=== PATIENT | female | born 1930 | race Caucasian/White ===

== ENCOUNTER → 2016-12-07 | Outpatient (CLI) | payer MEDICARE, BC ==
--- NOTE | 2016-12-07 10:49 | BD ---
EXAMINATION TYPE: MG DEXA axial skeleton. DATE OF EXAM: 12/07/2016 9:54 AM COMPARISON: 12.01.2010 CLINICAL HISTORY: N95.9 UNSPECIFIED KIRSTIE Height: 61 Weight: 161 FRAX RISK QUESTIONS: Alcohol (3 or more units per day): NO Family History (Parent hip fracture): NO Glucocorticoids (More than 3mos): NO (Ex: prednisone, prednisolone, methylprednisolone, dexamethasone, and hydrocortisone). History of Fracture in Adulthood: NO Secondary Osteoporosis: NO 1. Type 1 Diabetes: YES 2. Hyperthyroidism: NO 3. Menopause before 45: NO 4. Malnutrition: NO 5. Chronic liver disease: NO Rheumatoid Arthritis: NO Current Tobacco Use: NO RISK FACTORS HISTORY OF: Family History of Osteoporosis: NONE Smoke tobacco: NO Drink Alcohol: NO Active: YES Diet low in dairy products/other sources of calcium: NO Postmenopausal woman: 49 Lost more than 2 inches in height since high school: YES Adrenal Insufficiency: NO MEDICATIONS: Additional Medications: VIT D, BP MEDS, DIABETIC MEDS (ORAL), Additional History: DIABETES, HYPERTENSION EXAM MEASUREMENTS: Bone mineral densitometry was performed using the [employer] System. Bone mineral density as measured about the Lumbar spine is: ----- L1-L4(G/cm2): 1.210 T Score Values are as follows: ----- L1: -0.1 ----- L2: -0.3 ----- L3: 0.0 ----- L4: 1.1 ----- L1-L4: 0.3 Bone mineral density has: Increased 5.0% since study of: 12.01.2010 Bone mineral density about the R hip (g/cm2): 1.044 Bone mineral density about the L hip (g/cm2): 1.013 T Score values are as follows: -----R Neck: 0.2 -----L Neck: -0.4 -----R Intertrochanter: -0.1 -----L Intertrochanter: -0.2 Bone mineral density has: Increased 0.9% since study of: 12.01.2010 FRAX %'S: 8.1% CHANCE OF A MAJOR OSTEOPOROTIC FX AND 1.7% FOR A HIP FX....PROBABILITY OF FX IN 10 Y RS TIME IMPRESSION: Normal (Values between +1 and -1 indicate normal bone mass) range remains present. NOTE: T-SCORE=SD OF THE YOUNG ADULT MEAN.
--- NOTE | 2016-12-07 11:24 | MM ---
Reason for exam: screening (asymptomatic). Last mammogram was performed 2 years and 11 months ago. History: Patient is postmenopausal. Benign left US cyst aspiration of the left breast, December 01, 2010. Benign excisional biopsy of the left breast, 2000. Physical Findings: A clinical breast exam by your physician is recommended on an annual basis and results should be correlated with mammographic findings. MG Screening Mammo w CAD Bilateral CC and MLO view(s) were taken. XCCL view(s) were taken of the right breast. Prior study comparison: January 17, 2014, bilateral MG screening mammo w CAD. The breast tissue is heterogeneously dense. This may lower the sensitivity of mammography. Finding #1: There is a 10 mm circumscribed round mass in the upper quadrant, posterior position of the right breast. Finding #2: There are typically benign vascular, dystrophic, round calcifications in both breasts. Previous mammotome biopsy in the left breast. There is a chronic nodularity bilaterally. Nodularity in the left breast that has increased in size. New finding since January 17, 2014. ASSESSMENT: Incomplete: need additional imaging evaluation, BI-RAD 0 RECOMMENDATION: Ultrasound of both breasts. [facility] will attempt to contact patient to return for ultrasound.
== END | disposition home or self-care (01) ==
LOC: RADMAMWWP 09:16
PROVIDERS: ATTEND Family Medicine
DX: Z12.31 Encounter for screening mammogram for malignant neoplasm of breast (principal); N95.9 Unspecified menopausal and perimenopausal disorder; R92.2 Inconclusive mammogram
CPT/HCPCS: 77080; G0202

== ENCOUNTER → 2016-12-11 | Outpatient (CLI) | payer MEDICARE, BC ==
--- NOTE | 2016-12-11 11:37 | USB ---
Reason for exam: additional evaluation requested from abnormal screening. History: Patient is postmenopausal. Benign left US cyst aspiration of the left breast, December 01, 2010. Benign excisional biopsy of the left breast, 2000. Physical Findings: Nurse did not find any significant physical abnormalities on exam. US Breast Workup Limited DESTINI Right breast ultrasound demonstrates a 10 x 6 x 8mm oval, cystic lesion at 1 o'clock and a 2mm shadowing calcification at 1 o'clock. Left breast ultrasound demonstrates a 5mm cystic lesion at 2 o'clock, a 7 x 7 x 7mm lobular, cystic lesion at 3 o'clock, a 6 x 6 x 5mm lobular, cystic lesion at 3 o'clock and a 17 x 6 x 12mm lipoma at 3 o'clock. These results were verbally communicated with the patient and result sheet given to the patient on 12/11/16. ASSESSMENT: Probably benign, BI-RAD 3 RECOMMENDATION: Follow-up diagnostic mammogram of both breasts in 6 months.
== END | disposition home or self-care (01) ==
LOC: RADUSWWP 10:20
PROVIDERS: ATTEND Family Medicine
DX: R92.8 Other abnormal and inconclusive findings on diagnostic imaging of breast (principal)

== ENCOUNTER 2017-03-16 13:56 | Emergency (ER) | payer MEDICARE, BC ==
[2017-03-16 14:18] VITALS: TEMP 97.9
[2017-03-16 14:21] LABS: Glucose,Whole Blood 534 mg/dL (75-99)
[2017-03-16] MEDS ORDERED: SODIUM CHLORIDE 0.9% 1,000 ML IV STA ×2 (14:38)
[2017-03-16] MEDS ORDERED: SODIUM CHLORIDE 0.9% 500 ML IV STA (14:38)
[2017-03-16] MEDS ORDERED: INSULIN REGULAR 100 UNIT/ML VIAL IV ONE (14:39)
--- NOTE | 2017-03-16 14:54 | ED ---
General Adult HPI - General Chief complaint: Recheck/Abnormal Lab/Rx Stated complaint: Hyperglycemic Time Seen by Provider: 03/16/17 14:38 Source: patient, RN notes reviewed, old records reviewed Mode of arrival: ambulatory Limitations: no limitations - History of Present Illness Initial comments: This is an 87-year-old female to the ER for evaluation. This patient presents for evaluation regarding elevated blood sugar, severely elevated blood sugar relatively symptomatic since yesterday. Patient's [id number]. Has no complaints or symptoms - Related Data Home Medications Medication Instructions Recorded Confirmed Aspirin 81 mg PO DAILY 03/16/17 03/16/17 Atenolol 25 mg PO DAILY 03/16/17 03/16/17 Ergocalciferol (Vitamin D2) 50,000 unit PO DAILY 03/16/17 03/16/17 [Vitamin D2] Isosorbide Mononitrate ER [Imdur] 60 mg PO DAILY 03/16/17 03/16/17 Losartan/Hydrochlorothiazide 1 each PO DAILY 03/16/17 03/16/17 [Hyzaar 100-25 Tablet] Simvastatin [Zocor] 5 mg PO HS 03/16/17 03/16/17 glipiZIDE [Glucotrol] 5 mg PO AC-BID 03/16/17 03/16/17 metFORMIN HCL 500 mg PO BID 03/16/17 03/16/17 sitaGLIPtin [Januvia] 50 mg PO DAILY 03/16/17 03/16/17 Allergies Allergy/AdvReac Type Severity Reaction Status Date / Time No Known Allergies Allergy Verified 03/16/17 14:17 Review of Systems ROS Statement: Those systems with pertinent positive or pertinent negative responses have been documented in the HPI. ROS Other: All systems not noted in ROS Statement are negative. Past Medical History Past Medical History: Diabetes Mellitus History of Any Multi-Drug Resistant Organisms: None Reported Past Surgical History: Cholecystectomy Past Psychological History: No Psychological Hx Reported Smoking Status: Never smoker Past Alcohol Use History: None Reported Past Drug Use History: None Reported General Exam Limitations: no limitations General appearance: alert, in no apparent distress Head exam: Present: atraumatic, normocephalic, normal inspection Eye exam: Present: normal appearance, PERRL, EOMI. Absent: scleral icterus, conjunctival injection, periorbital swelling ENT exam: Present: normal exam, mucous membranes moist Neck exam: Present: normal inspection. Absent: tenderness, meningismus, lymphadenopathy Respiratory exam: Present: normal lung sounds bilaterally. Absent: respiratory distress, wheezes, rales, rhonchi, stridor Cardiovascular Exam: Present: regular rate, normal rhythm, normal heart sounds. Absent: systolic murmur, diastolic murmur, rubs, gallop, clicks GI/Abdominal exam: Present: soft, normal bowel sounds. Absent: distended, tenderness, guarding, rebound, rigid Extremities exam: Present: normal inspection, full ROM, normal capillary refill. Absent: tenderness, pedal edema, joint swelling, calf tenderness Back exam: Present: normal inspection Neurological exam: Present: alert, oriented X3, CN II-XII intact Psychiatric exam: Present: normal affect, normal mood Skin exam: Present: warm, dry, intact, normal color. Absent: rash Course Vital Signs 03/16/17 14:15 Temperature 97.9 F Pulse Rate 62 Respiratory 16 Rate Blood Pressure 118/79 O2 Sat by Pulse 97 Oximetry - Reevaluation(s) Reevaluation #1: 03/16/17 16:44 Patient has good blood sugar control at this time. The bones improved, encouraged to drink a lot of liquids and will be discharged home EKG Findings - EKG Comments: EKG Findings:: EKG shows sinus bradycardia rate of 50, pO2 30, QRS 94, QTC 435 Medical Decision Making - Medical Decision Making 79 female in the ER for evaluation of hyperglycemia with diabetes. Patient no longer has success with oral medication, asymptomatic otherwise, encouraged to follow up with family care tomorrow regarding management of diabetes - Lab Data Result diagrams: 03/16/17 15:31 03/16/17 15:31 Lab Results 03/16/17 03/16/17 03/16/17 Range/Units 14:18 15:31 15:31 WBC (3.8-10.6) k/uL RBC (3.80-5.40) m/uL Hgb (11.4-16.0) gm/dL Hct (34.0-46.0) % MCV (80.0-100.0) fL MCH (25.0-35.0) pg MCHC (31.0-37.0) g/dL RDW (11.5-15.5) % Plt Count (150-450) k/uL Neutrophils % % Lymphocytes % % Monocytes % % Eosinophils % % Basophils % % Neutrophils # (1.3-7.7) k/uL Lymphocytes # (1.0-4.8) k/uL Monocytes # (0-1.0) k/uL Eosinophils # (0-0.7) k/uL Basophils # (0-0.2) k/uL PT (9.0-12.0) sec INR (<1.2) APTT (22.0-30.0) sec VBG pH 7.36 (7.31-7.41) VBG pCO2 49 (37-51) mmHg VBG HCO3 27 (24-28) mmol/L Sodium 133 L (137-145) mmol/L Potassium 4.2 (3.5-5.1) mmol/L Chloride 95 L (98-107) mmol/L Carbon Dioxide 24 (22-30) mmol/L Anion Gap 14 mmol/L BUN 27 H (7-17) mg/dL Creatinine 1.20 H (0.52-1.04) mg/dL Est GFR (MDRD) Af Amer 51 (>60 ml/min/1.73 sqM) Est GFR (MDRD) Non-Af 42 (>60 ml/min/1.73 sqM) Glucose 532 H* (74-99) mg/dL POC Glucose (mg/dL) 534 H (75-99) mg/dL POC Glu Emergency Medicine Physician Assistant Osiris Chandler Calcium 9.9 (8.4-10.2) mg/dL Phosphorus 3.8 (2.5-4.5) mg/dL Magnesium 1.8 (1.6-2.3) mg/dL Total Bilirubin 0.8 (0.2-1.3) mg/dL AST 45 H (14-36) U/L ALT 75 H (9-52) U/L Alkaline Phosphatase 207 H (38-126) U/L Total Creatine Kinase (30-135) U/L CK-MB (CK-2) (0.0-2.4) ng/mL CK-MB (CK-2) Rel Index Troponin I (0.000-0.034) ng/mL Total Protein 7.4 (6.3-8.2) g/dL Albumin 4.4 (3.5-5.0) g/dL Urine Color Urine Appearance (Clear) Urine pH (5.0-8.0) Ur Specific [place] (1.001-1.035) Urine Protein (Negative) Urine Glucose (UA) (Negative) Urine Ketones (Negative) Urine Blood (Negative) Urine Nitrite (Negative) Urine Bilirubin (Negative) Urine Urobilinogen (<2.0) mg/dL Ur Leukocyte Esterase (Negative) Acetone, Qual Negative (Negative) 03/16/17 03/16/17 03/16/17 Range/Units 15:31 15:31 15:31 WBC 6.0 (3.8-10.6) k/uL RBC 4.64 (3.80-5.40) m/uL Hgb 14.2 (11.4-16.0) gm/dL Hct 42.1 (34.0-46.0) % MCV 90.9 (80.0-100.0) fL MCH 30.6 (25.0-35.0) pg MCHC 33.7 (31.0-37.0) g/dL RDW 13.6 (11.5-15.5) % Plt Count 206 (150-450) k/uL Neutrophils % 77 % Lymphocytes % 15 % Monocytes % 5 % Eosinophils % 1 % Basophils % 0 % Neutrophils # 4.6 (1.3-7.7) k/uL Lymphocytes # 0.9 L (1.0-4.8) k/uL Monocytes # 0.3 (0-1.0) k/uL Eosinophils # 0.0 (0-0.7) k/uL Basophils # 0.0 (0-0.2) k/uL PT 10.0 (9.0-12.0) sec INR 1.0 (<1.2) APTT 21.8 L (22.0-30.0) sec VBG pH (7.31-7.41) VBG pCO2 (37-51) mmHg VBG HCO3 (24-28) mmol/L Sodium (137-145) mmol/L Potassium (3.5-5.1) mmol/L Chloride (98-107) mmol/L Carbon Dioxide (22-30) mmol/L Anion Gap mmol/L BUN (7-17) mg/dL Creatinine (0.52-1.04) mg/dL Est GFR (MDRD) Af Amer (>60 ml/min/1.73 sqM) Est GFR (MDRD) Non-Af (>60 ml/min/1.73 sqM) Glucose (74-99) mg/dL POC Glucose (mg/dL) (75-99) mg/dL POC Glu Emergency Medicine Physician Assistant ID Calcium (8.4-10.2) mg/dL Phosphorus (2.5-4.5) mg/dL Magnesium (1.6-2.3) mg/dL Total Bilirubin (0.2-1.3) mg/dL AST (14-36) U/L ALT (9-52) U/L Alkaline Phosphatase (38-126) U/L Total Creatine Kinase 38 (30-135) U/L CK-MB (CK-2) 0.7 (0.0-2.4) ng/mL CK-MB (CK-2) Rel Index 1.8 Troponin I <0.012 (0.000-0.034) ng/mL Total Protein (6.3-8.2) g/dL Albumin (3.5-5.0) g/dL Urine Color Urine Appearance (Clear) Urine pH (5.0-8.0) Ur Specific [place] (1.001-1.035) Urine Protein (Negative) Urine Glucose (UA) (Negative) Urine Ketones (Negative) Urine Blood (Negative) Urine Nitrite (Negative) Urine Bilirubin (Negative) Urine Urobilinogen (<2.0) mg/dL Ur Leukocyte Esterase (Negative) Acetone, Qual (Negative) 03/16/17 Range/Units 15:31 WBC (3.8-10.6) k/uL RBC (3.80-5.40) m/uL Hgb (11.4-16.0) gm/dL Hct (34.0-46.0) % MCV (80.0-100.0) fL MCH (25.0-35.0) pg MCHC (31.0-37.0) g/dL RDW (11.5-15.5) % Plt Count (150-450) k/uL Neutrophils % % Lymphocytes % % Monocytes % % Eosinophils % % Basophils % % Neutrophils # (1.3-7.7) k/uL Lymphocytes # (1.0-4.8) k/uL Monocytes # (0-1.0) k/uL Eosinophils # (0-0.7) k/uL Basophils # (0-0.2) k/uL PT (9.0-12.0) sec INR (<1.2) APTT (22.0-30.0) sec VBG pH (7.31-7.41) VBG pCO2 (37-51) mmHg VBG HCO3 (24-28) mmol/L Sodium (137-145) mmol/L Potassium (3.5-5.1) mmol/L Chloride (98-107) mmol/L Carbon Dioxide (22-30) mmol/L Anion Gap mmol/L BUN (7-17) mg/dL Creatinine (0.52-1.04) mg/dL Est GFR (MDRD) Af Amer (>60 ml/min/1.73 sqM) Est GFR (MDRD) Non-Af (>60 ml/min/1.73 sqM) Glucose (74-99) mg/dL POC Glucose (mg/dL) (75-99) mg/dL POC Glu Emergency Medicine Physician Assistant ID Calcium (8.4-10.2) mg/dL Phosphorus (2.5-4.5) mg/dL Magnesium (1.6-2.3) mg/dL Total Bilirubin (0.2-1.3) mg/dL AST (14-36) U/L ALT (9-52) U/L Alkaline Phosphatase (38-126) U/L Total Creatine Kinase (30-135) U/L CK-MB (CK-2) (0.0-2.4) ng/mL CK-MB (CK-2) Rel Index Troponin I (0.000-0.034) ng/mL Total Protein (6.3-8.2) g/dL Albumin (3.5-5.0) g/dL Urine Color Light Yellow Urine Appearance Clear (Clear) Urine pH 5.5 (5.0-8.0) Ur Specific [place] 1.020 (1.001-1.035) Urine Protein Negative (Negative) Urine Glucose (UA) 4+ H (Negative) Urine Ketones Negative (Negative) Urine Blood Negative (Negative) Urine Nitrite Negative (Negative) Urine Bilirubin Negative (Negative) Urine Urobilinogen <2.0 (<2.0) mg/dL Ur Leukocyte Esterase Negative (Negative) Acetone, Qual (Negative) Disposition Clinical Impression: Insulin dependent diabetes mellitus, Hyperglycemia Disposition: HOME SELF-CARE Condition: Good Instructions: Type 1 Diabetes in Adults (ED), How to Check Your Blood Sugar (ED ) Referrals: Camryn Walls MD [Primary Care Provider] - 1-2 days
[2017-03-16 15:51] LABS: VBG PH 7.36 (7.31-7.41)
[2017-03-16 15:52] LABS: Appearance,Urine Clear (Clear); Bilirubin,Urine Negative (Negative); Glucose,Urine (UA) 4+ (Negative); Ketones,Urine Negative (Negative); Leukocyte Esterase,Urine Negative (Negative); Nitrite,Urine Negative (Negative); PH, Urine 5.5 (5.0-8.0); Protein,Urine Negative (Negative); UA Billing (MACRO vs. MICRO) CHEM; Urobilinogen,Urine <2.0 mg/dL (<2.0)
[2017-03-16 15:53] LABS: Basophils % (A) 0 %; CH 31.2; CHCM 34.5; Eosinophils % (A) 1 %; HCT 42.1 % (34.0-46.0); HDW 2.74; HGB 14.2 gm/dL (11.4-16.0); Luc % (Auto) 2; Lymphocytes # (A) 0.9 k/uL (1.0-4.8); Lymphocytes % (A) 15 %; MCH 30.6 pg (25.0-35.0); MCHC 33.7 g/dL (31.0-37.0); MCV 90.9 fL (80.0-100.0); Mean Platelet Volume 8.6; Monocytes # (A) 0.3 k/uL (0-1.0); Monocytes % (A) 5 %; Neutrophils # (A) 4.6 k/uL (1.3-7.7); Neutrophils % (A) 77 %; RBC 4.64 m/uL (3.80-5.40); RDW 13.6 % (11.5-15.5); WBC (Perox) 5.73
[2017-03-16 16:05] LABS: Partial Thromboplastin Time 21.8 sec (22.0-30.0)
[2017-03-16 16:20] LABS: ALT 75 U/L (9-52); AST 45 U/L (14-36); Alkaline Phosphatase 207 U/L (38-126); Anion Gap 14 mmol/L; Blood Urea Nitrogen 27 mg/dL (7-17); Calcium 9.9 mg/dL (8.4-10.2); Carbon Dioxide 24 mmol/L (22-30); Chloride 95 mmol/L (98-107); Creatine Kinase 38 U/L (30-135); Magnesium 1.8 mg/dL (1.6-2.3); Non-African American GFR(MDRD) 42 (>60 ml/min/1.73 sqM); Phosphorous 3.8 mg/dL (2.5-4.5); Sodium 133 mmol/L (137-145); Total Bilirubin 0.8 mg/dL (0.2-1.3); Total Protein 7.4 g/dL (6.3-8.2)
[2017-03-16 16:23] LABS: Potassium 4.2 mmol/L (3.5-5.1)
[2017-03-16 16:31] LABS: Creatine Kinase MB 0.7 ng/mL (0.0-2.4); Glucose 532 mg/dL (74-99); Troponin I <0.012 ng/mL (0.000-0.034)
[2017-03-16 17:01] LABS: Glucose,Whole Blood 403 mg/dL (75-99)
[2017-03-16 17:56] LABS: Glucose,Whole Blood 320 mg/dL (75-99)
[2017-03-16 18:07] VITALS: BP 119/77; PULSE 90; RESP 18
== END 2017-03-16 18:07 | disposition home or self-care (01) ==
LOC: EC 13:56
DX: E11.65 Type 2 diabetes mellitus with hyperglycemia (principal); Z79.84 Long term (current) use of oral hypoglycemic drugs; Z79.899 Other long term (current) drug therapy
CPT/HCPCS: 36415; 80053; 81003; 82009; 82550; 82553; 82803; 83735; 84100; 84484; 85025; 85610; 85730; 87086; 93005; 96360; 96361; 99285

== ENCOUNTER → 2017-08-26 | Outpatient (CLI) | payer MEDICARE, BC ==
--- NOTE | 2017-08-26 09:57 | CT ---
EXAMINATION TYPE: CT abdomen w con DATE OF EXAM: 08/26/2017 COMPARISON: NONE HISTORY: Abnormal results of liver function study CT DLP: 732 mGycm CONTRAST: CT scan of the abdomen is performed with Oral Contrast and with IV Contrast, patient injected with 50 mL of Omnipaque 350. FINDINGS: LUNG BASES-: No visible nodule. No infiltrate. The heart is enlarged. 8 mm pulmonary nodule medial s egment right middle lobe additional 4 mm nodules at the right lung base. LIVER/GB: Heterogenous mass posterior segment right hepatic lobe measuring 4.8 cm is suspicious for m alignancy. Additional adjacent cystic lesion measuring 1.5 cm. Hyperdense lesion near the dome of the liver measures 7 mm. Additional lesion medial aspect posterior segment right hepatic lobe near the d ome of the liver measures 1.7 cm. Intra and extra hepatic biliary ductal dilatation. PANCREAS: The pancreatic duct is dilated measuring 1 cm. Multiple pancreatic calcifications indicatin g chronic pancreatitis. SPLEEN: No splenic enlargement. No lesion seen. ADRENALS: No nodule. No thickening. KIDNEYS/BLADDER: Renal parenchymal thinning bilaterally. Suspect right-sided extrarenal pelvis. No n ephrolithiasis. Subcentimeter cyst midpole left kidney. Urinary bladder grossly unremarkable. BOWEL: Normal appendix. Normal bowel caliber. No inflammation. GENITAL ORGANS: No gross abnormality. LYMPH NODES: No greater than 1cm abdominal or pelvic lymph nodes are appreciated. AORTA: No significant abnormality. OSSEOUS STRUCTURES: No significant abnormality is seen. OTHER: No significant additional abnormality is seen. IMPRESSION: 1. Hepatic lesions suspicious for malignancy or metastatic disease. 2. Chronic pancreatitis changes. 3. Nonspecific pulmonary nodules.
== END | disposition home or self-care (01) ==
LOC: RADCTMAIN 08:17
PROVIDERS: ATTEND Family Medicine
DX: K76.89 Other specified diseases of liver (principal); K86.89 Other specified diseases of pancreas
CPT/HCPCS: 74160; Q9967; 82105; 82378; 85025; 85610; 85730

== ENCOUNTER → 2017-08-28 | Outpatient (CLI) | payer MEDICARE, BC ==
--- NOTE | 2017-08-30 08:09 | PE ---
Nuclear medicine PET/CT HISTORY: Sarcoma of liver, initial Patient received 12.9 mCi F-18 FDG intravenously in delayed scanning performed from the skull base an d size. Localization and attenuation correction CT scan was performed. Correlation to CT abdomen 08/26/2016. Neck and chest: No evident adenopathy. Enlarged thyroid with calcification extends posterior to the t rachea. Pulmonary artery appears somewhat prominent, there could be underlying pulmonary artery hyper tension. There are coronary artery calcifications. No pleural or pericardial effusion. Nodular densit y abutting the right heart border measures approximately 7 to 8 mm, question additional nodule adjace nt to the hemidiaphragm on axial image 108 measuring 8 to 9 mm. Abdomen pelvis: There are dilated intra and extrahepatic biliary ducts, patient is post cholecystecto my. Liver mass in the posterior right lobe is noted however there is no associated hypermetabolic upt nieves. No retroperitoneal adenopathy. Hydronephrosis persists in the right kidney. Extensive calcificat ions, pancreatic ductal dilatation again noted. Osseous structures: No suspicious hypermetabolic uptake. Uptake within the musculature is thought lik seven to be physiologic. IMPRESSION: Hydronephrosis right kidney. Indeterminate pulmonary nodule. Liver mass. No suspicious hy permetabolic uptake evident.
== END | disposition home or self-care (01) ==
LOC: RADPETMAIN 08:58
PROVIDERS: ATTEND Family Medicine
DX: C22.4 Other sarcomas of liver (principal); N13.30 Unspecified hydronephrosis
CPT/HCPCS: 78815; A9552

== ENCOUNTER 2017-08-31 12:00 | Inpatient (IN) | payer MEDICARE, BC ==
--- NOTE | 2017-08-31 12:55 | ED ---
Abdominal Pain HPI - General Chief Complaint: Abdominal Pain Stated Complaint: Stomach pain/yellow skin Time Seen by Provider: 08/31/17 12:12 Source: patient Mode of arrival: ambulatory Limitations: no limitations - History of Present Illness Initial Comments: This is an 87-year-old female with a history cholecystectomy who presents emergent department for epigastric and left-sided abdominal pain. She states is been going on intermittently for the last 6 or 7 months however has gradually worsened. She was recently worked up with PET scan computed tomography scan that was unremarkable per the patient. She states that the pain is gradually worsened and now she starting to have itching and yellow skin. She does note that her liver function tests have been elevated as an outpatient. She states that she came in today because it seemed like it is worsening. She was told that she needs some type of scope done to figure out the problem and was wondering if she can get that done here. She denies any chest pain or shortness of breath. No fevers or chills. No nausea, vomiting, or diarrhea. No other complaints. - Related Data Home Medications Medication Instructions Recorded Confirmed Aspirin 81 mg PO HS 03/16/17 08/31/17 Atenolol 25 mg PO DAILY 03/16/17 08/31/17 Isosorbide Mononitrate ER [Imdur] 60 mg PO DAILY 03/16/17 08/31/17 Losartan/Hydrochlorothiazide 1 tab PO DAILY 03/16/17 08/31/17 [Hyzaar 100-25 Tablet] Insulin Glargine,Hum.rec.anlog 10 unit SQ HS 08/31/17 08/31/17 [Basaglar Kwikpen U-100] Allergies Allergy/AdvReac Type Severity Reaction Status Date / Time No Known Allergies Allergy Verified 08/31/17 12:37 Review of Systems ROS Statement: Those systems with pertinent positive or pertinent negative responses have been documented in the HPI. ROS Other: All systems not noted in ROS Statement are negative. Past Medical History Past Medical History: Diabetes Mellitus History of Any Multi-Drug Resistant Organisms: None Reported Past Surgical History: Cholecystectomy Additional Past Surgical History / Comment(s): thyroid surgery Past Psychological History: No Psychological Hx Reported Smoking Status: Never smoker Past Alcohol Use History: None Reported Past Drug Use History: None Reported General Exam - General Exam Comments Initial Comments: Constitutional: Awake alert Appears comfortable, patient has mild jaundice Head: Normocephalic atraumatic Eyes: no conjunctival injection No scleral icterus EOMI Neck: No JVD Supple Heart: Regular rate rhythm normal S1-S2 no murmurs Lungs: Clear to auscultation bilaterally No wheezing No rales Abdomen: Soft nondistended mild epigastric tenderness without rebound or guarding Extremities: Non edematous DP pulses intact Radial pulses intact Neuro: A&Ox3 No focal neurologic deficits Psych: Appropriate mood and affect Limitations: no limitations Course Vital Signs 08/31/17 08/31/17 12:04 14:13 Temperature 97.6 F 97.4 F L Pulse Rate 52 L 62 Respiratory 18 18 Rate Blood Pressure 129/61 101/50 O2 Sat by Pulse 100 97 Oximetry Medical Decision Making - Medical Decision Making This is an 79-year-old female who presented to emergency department for for persistent abdominal pain and jaundice. The patient has had abnormal LFTs as an outpatient. He has had a workup with a computed tomography scan and PET scan which the patient reports have been unremarkable. I did review the computed tomography scan and it did show biliary duct dilation and also some liver lesions however the patient states that the PET scan show that the liver lesions were not cancerous. The patient's having persistent pain and has persistent LFT elevation. She needs evaluation by GI and possibly an ERCP. I spoke with Dr. Kendrick who accepts admission. - Lab Data Result diagrams: 08/31/17 12:54 08/31/17 12:54 Lab Results 08/31/17 08/31/17 08/31/17 Range/Units 12:54 12:54 13:06 WBC 4.2 (3.8-10.6) k/uL RBC 3.93 (3.80-5.40) m/uL Hgb 11.7 (11.4-16.0) gm/dL Hct 37.0 (34.0-46.0) % MCV 94.0 (80.0-100.0) fL MCH 29.8 (25.0-35.0) pg MCHC 31.7 (31.0-37.0) g/dL RDW 15.4 (11.5-15.5) % Plt Count 197 (150-450) k/uL Neutrophils % 64 % Lymphocytes % 18 % Monocytes % 7 % Eosinophils % 9 % Basophils % 1 % Neutrophils # 2.7 (1.3-7.7) k/uL Lymphocytes # 0.7 L (1.0-4.8) k/uL Monocytes # 0.3 (0-1.0) k/uL Eosinophils # 0.4 (0-0.7) k/uL Basophils # 0.0 (0-0.2) k/uL Sodium 140 (137-145) mmol/L Potassium 3.7 (3.5-5.1) mmol/L Chloride 103 (98-107) mmol/L Carbon Dioxide 27 (22-30) mmol/L Anion Gap 10 mmol/L BUN 29 H (7-17) mg/dL Creatinine 2.17 H (0.52-1.04) mg/dL Est GFR (MDRD) Af Amer 26 (>60 ml/min/1.73 sqM) Est GFR (MDRD) Non-Af 21 (>60 ml/min/1.73 sqM) Glucose 175 H (74-99) mg/dL Calcium 9.2 (8.4-10.2) mg/dL Total Bilirubin 2.4 H (0.2-1.3) mg/dL Conjugated Bilirubin 0.0 (0.0-0.3) mg/dL Unconjugated Bilirubin 0.5 (0.0-1.1) mg/dL Delta Bilirubin 1.9 H (0.0-0.2) mg/dL AST 83 H (14-36) U/L ALT 121 H (9-52) U/L Alkaline Phosphatase 965 H (38-126) U/L Total Protein 6.6 (6.3-8.2) g/dL Albumin 3.7 (3.5-5.0) g/dL Lipase 94 (23-300) U/L Urine Color Yellow Urine Appearance Clear (Clear) Urine pH 5.0 (5.0-8.0) Ur Specific [place] 1.011 (1.001-1.035) Urine Protein Trace H (Negative) Urine Glucose (UA) Negative (Negative) Urine Ketones Negative (Negative) Urine Blood Negative (Negative) Urine Nitrite Negative (Negative) Urine Bilirubin Negative (Negative) Urine Urobilinogen <2.0 (<2.0) mg/dL Ur Leukocyte Esterase Moderate H (Negative) Urine WBC 8 H (0-5) /hpf Ur Squamous Epith Cells 1 (0-4) /hpf Urine Bacteria Rare H (None) /hpf Urine Mucus Rare H (None) /hpf Disposition Clinical Impression: Hyperbilirubinemia, Obstructive jaundice Disposition: ADMITTED IP TO THIS HOSP Condition: Stable
[2017-08-31 13:08] LABS: Basophils % (A) 1 %; Eosinophils # (A) 0.4 k/uL (0-0.7); Eosinophils % (A) 9 %; HGB 11.7 gm/dL (11.4-16.0); Lymphocytes # (A) 0.7 k/uL (1.0-4.8); Lymphocytes % (A) 18 %; MCH 29.8 pg (25.0-35.0); MCHC 31.7 g/dL (31.0-37.0); Mean Platelet Volume 8.5; Monocytes # (A) 0.3 k/uL (0-1.0); Monocytes % (A) 7 %; Neutrophils # (A) 2.7 k/uL (1.3-7.7); Neutrophils % (A) 64 %; Platelet Count 197 k/uL (150-450); RBC 3.93 m/uL (3.80-5.40); RDW 15.4 % (11.5-15.5); WBC 4.2 k/uL (3.8-10.6)
[2017-08-31 13:21] LABS: Albumin 3.7 g/dL (3.5-5.0); Bilirubin, Delta 1.9 mg/dL (0.0-0.2); Bilirubin,Unconjugated 0.5 mg/dL (0.0-1.1); Calcium 9.2 mg/dL (8.4-10.2); Potassium 3.7 mmol/L (3.5-5.1); Total Bilirubin 2.4 mg/dL (0.2-1.3); Total Protein 6.6 g/dL (6.3-8.2)
[2017-08-31 13:24] LABS: Appearance,Urine Clear (Clear); Bacteria,Urine Rare /hpf; Bilirubin,Urine Negative (Negative); Blood,Urine Negative (Negative); Color,Urine Yellow; Glucose,Urine (UA) Negative (Negative); Ketones,Urine Negative (Negative); Leukocyte Esterase,Urine Moderate (Negative); Mucus,Urine Rare /hpf; Nitrite,Urine Negative (Negative); Protein,Urine Trace (Negative); Specific Gravity,Urine 1.011 (1.001-1.035); Squamous Epithelial Cell,Urine 1 /hpf (0-4); Urobilinogen,Urine <2.0 mg/dL (<2.0); WBC,Urine 8 /hpf (0-5)
[2017-08-31] MEDS ORDERED: NALOXONE 0.4 MG/ML 1 ML VIAL IV PRN (14:13)
[2017-08-31] MEDS ORDERED: ACETAMINOPHEN TAB 325 MG TAB PO PRN (14:13)
[2017-08-31] MEDS ORDERED: ONDANSETRON 4 MG/2 ML VIAL IVP PRN (14:13)
[2017-08-31 17:47] LABS: Glucose,Whole Blood 173 mg/dL (75-99)
[2017-08-31] MEDS: diphenhydrAMINE 2% CREAM 28.4 GM TUBE TOPICAL SCH (18:05)
[2017-08-31] MEDS ORDERED: diphenhydrAMINE 25 MG CAP PO PRN (18:42)
[2017-08-31] MEDS: SODIUM CHLORIDE 0.9% 1,000 ML IV SCH (18:54)
[2017-08-31] MEDS ORDERED: INSULIN DETEMIR 100 UNIT/ML 10 ML VIAL SQ SCH (21:00)
[2017-08-31] MEDS ORDERED: ASPIRIN 81 MG PO SCH (21:00)
[2017-08-31 21:02] LABS: Glucose,Whole Blood 271 mg/dL (75-99)
[2017-08-31] MEDS: INSULIN ASPART 100 UNIT/ML 1 ML 10 ML VIAL SQ SCH (22:09)
[2017-09-01 02:26] LABS: Hemoglobin A1C 7.9 % (4.0-6.0)
[2017-09-01 07:18] LABS: Glucose,Whole Blood 68 mg/dL (75-99)
[2017-09-01 07:29] LABS: Glucose,Whole Blood 78 mg/dL (75-99)
[2017-09-01] MEDS: INSULIN ASPART 100 UNIT/ML 1 ML 10 ML VIAL SQ SCH ×4 (07:53→21:18)
[2017-09-01] MEDS ORDERED: LOSARTAN-HCTZ 50-12.5 MG 1 EACH TAB PO SCH (09:00)
[2017-09-01] MEDS: ATENOLOL 25 MG TAB PO SCH (09:31)
[2017-09-01] MEDS: ISOSORBIDE MONONITRATE ER 60 MG TAB.ER.24H PO SCH (09:31)
[2017-09-01] MEDS: diphenhydrAMINE 2% CREAM 28.4 GM TUBE TOPICAL SCH ×2 (09:31→21:19)
[2017-09-01] MEDS ORDERED: ONDANSETRON 4 MG/2 ML VIAL IVP PRN (11:01)
[2017-09-01 11:29] LABS: Basophils % (A) 0 %; Eosinophils # (A) 0.4 k/uL (0-0.7); Eosinophils % (A) 10 %; HGB 10.6 gm/dL (11.4-16.0); Lymphocytes # (A) 0.8 k/uL (1.0-4.8); Lymphocytes % (A) 21 %; MCH 29.9 pg (25.0-35.0); MCHC 32.2 g/dL (31.0-37.0); MCV 92.7 fL (80.0-100.0); Mean Platelet Volume 8.2; Monocytes # (A) 0.3 k/uL (0-1.0); Monocytes % (A) 7 %; Neutrophils # (A) 2.2 k/uL (1.3-7.7); Neutrophils % (A) 59 %; Platelet Count 175 k/uL (150-450); RBC 3.55 m/uL (3.80-5.40); RDW 14.1 % (11.5-15.5); WBC 3.7 k/uL (3.8-10.6)
--- NOTE | 2017-09-01 11:45 | P.HPIM ---
History of Present Illness H&P Date: 09/01/17 Chief Complaint: Abdominal discomfort This is a 87-year-old female with past medical history noted below who was recently found to have a liver mass by her primary care physician. Patient has been having abdominal discomfort and at some point she was more jaundiced. She was noted to have mild hyperbilirubinemia and underwent a computed tomography scan of the abdomen last week showing evidence of right hepatic lobe mass measuring approximately 4.8 cm. Patient underwent a PET scan subsequently showing no evidence of metastatic disease. There was a solitary intermediate pulmonary nodule of unclear significance noted there was no suspicious hypermetabolic update evident. Patient presented yesterday to the emergency room with worsening abdominal pain and discomfort. She was evaluated and admitted with a consultation for GI for possible ERCP. She is comfortable today when I saw her. Family at bedside. Review of Systems Review of system: 14 points review of systems were obtained and were negative except to what were mentioned in the HPI. Past Medical History Past Medical History: Diabetes Mellitus, Hypertension, Osteoarthritis (OA), Thyroid Disorder Additional Past Medical History / Comment(s): past goiter(sx), hemorroids, cataracts(sx) History of Any Multi-Drug Resistant Organisms: None Reported Past Surgical History: Cholecystectomy Additional Past Surgical History / Comment(s): thyroid surgery-goiter removed in the s, colonoscopy, lt breast bx-neg,cataracts Past Anesthesia/Blood Transfusion Reactions: No Reported Reaction Smoking Status: Never smoker - Past Family History Father Additional Family Medical History / Comment(s): alocoholic. pt did'nt know him well Mother Family Medical History: No Reported History Additional Family Medical History / Comment(s): was healthy- at age 92 from "old age" Brother(s) Family Medical History: Cancer Additional Family Medical History / Comment(s): 2 brothers from some form of cancer. Medications and Allergies Home Medications Medication Instructions Recorded Confirmed Type Aspirin 81 mg PO HS 03/16/17 08/31/17 History Atenolol 25 mg PO DAILY 03/16/17 08/31/17 History Isosorbide Mononitrate ER [Imdur] 60 mg PO DAILY 03/16/17 08/31/17 History Losartan/Hydrochlorothiazide 1 tab PO DAILY 03/16/17 08/31/17 History [Hyzaar 100-25 Tablet] Insulin Glargine,Hum.rec.anlog 10 unit SQ HS 08/31/17 08/31/17 History [Basaglar Kwikpen U-100] Allergies Allergy/AdvReac Type Severity Reaction Status Date / Time No Known Allergies Allergy Verified 08/31/17 12:37 Physical Exam Vitals: Vital Signs Temp Pulse Pulse Resp BP BP Pulse Ox 09/01/17 06:24 97.0 F L 60 16 119/58 99 08/31/17 23:00 98.2 F 53 L 16 115/54 98 08/31/17 17:00 97.6 F 62 16 114/73 96 08/31/17 16:29 96.8 F L 56 L 14 106/50 100 08/31/17 14:13 97.4 F L 62 18 101/50 97 08/31/17 12:04 97.6 F 52 L 18 129/61 100 Intake and Output 08/31/17 09/01/17 09/01/17 22:59 06:59 14:59 Other: Voiding Method Toilet # Voids 1 1 General: The patient is awake and alert, in no distress Eye: there is mild icteric sclera bilaterally Neck: The neck is supple, there is no JVD. Cardiovascular: Normal S1-S2, no S3-S4, no murmurs. Respiratory: Lungs clear to auscultation bilaterally Gastrointestinal: Abdomen is soft, nontender Musculoskeletal: There is no pedal edema. Neurological:. Speech is normal. Skin: Skin is warm and dry Results CBC & Chem 7: 08/31/17 12:54 08/31/17 12:54 Labs: Abnormal Lab Results - Last 24 Hours (Table) 08/31/17 08/31/17 08/31/17 Range/Units 12:54 12:54 12:58 Lymphocytes # 0.7 L (1.0-4.8) k/uL BUN 29 H (7-17) mg/dL Creatinine 2.17 H (0.52-1.04) mg/dL Glucose 175 H (74-99) mg/dL POC Glucose (mg/dL) (75-99) mg/dL Hemoglobin A1c 7.9 H (4.0-6.0) % Total Bilirubin 2.4 H (0.2-1.3) mg/dL Delta Bilirubin 1.9 H (0.0-0.2) mg/dL AST 83 H (14-36) U/L ALT 121 H (9-52) U/L Alkaline Phosphatase 965 H (38-126) U/L Urine Protein (Negative) Ur Leukocyte Esterase (Negative) Urine WBC (0-5) /hpf Urine Bacteria (None) /hpf Urine Mucus (None) /hpf 08/31/17 08/31/17 08/31/17 Range/Units 13:06 17:29 20:59 Lymphocytes # (1.0-4.8) k/uL BUN (7-17) mg/dL Creatinine (0.52-1.04) mg/dL Glucose (74-99) mg/dL POC Glucose (mg/dL) 173 H 271 H (75-99) mg/dL Hemoglobin A1c (4.0-6.0) % Total Bilirubin (0.2-1.3) mg/dL Delta Bilirubin (0.0-0.2) mg/dL AST (14-36) U/L ALT (9-52) U/L Alkaline Phosphatase (38-126) U/L Urine Protein Trace H (Negative) Ur Leukocyte Esterase Moderate H (Negative) Urine WBC 8 H (0-5) /hpf Urine Bacteria Rare H (None) /hpf Urine Mucus Rare H (None) /hpf 09/01/17 Range/Units 07:05 Lymphocytes # (1.0-4.8) k/uL BUN (7-17) mg/dL Creatinine (0.52-1.04) mg/dL Glucose (74-99) mg/dL POC Glucose (mg/dL) 68 L (75-99) mg/dL Hemoglobin A1c (4.0-6.0) % Total Bilirubin (0.2-1.3) mg/dL Delta Bilirubin (0.0-0.2) mg/dL AST (14-36) U/L ALT (9-52) U/L Alkaline Phosphatase (38-126) U/L Urine Protein (Negative) Ur Leukocyte Esterase (Negative) Urine WBC (0-5) /hpf Urine Bacteria (None) /hpf Urine Mucus (None) /hpf Thrombosis Risk Factor Assmnt - Choose All That Apply Any of the Below Risk Factors Present?: Yes Other Risk Factors: Yes Each Risk Factor Represents 3 Points: Age 75 years or older Other congenital or acquired thrombophilia - If yes, enter type in comment: No Thrombosis Risk Factor Assessment Total Risk Factor Score: 3 Thrombosis Risk Factor Assessment Level: Moderate Risk Assessment and Plan Assessment: 1. Right lobe liver mass measuring approximately 4.8 cm, could be benign as there is no hypermetabolic uptake evident on PET scan. We'll consult oncology for further evaluation. May consider CT-guided biopsy. IR consulted. Patient is on aspirin at home which is currently on hold starting 07/01/2018. 2. Hyperbilirubinemia/obstructive jaundice: Bilirubin is slightly elevated. Patient was seen and evaluated by GI. Scheduled for ERCP 3. Mild transaminitis, probably secondary to underlying liver mass. Patient denies alcohol use. Viral hepatitis panel done last week was negative. 4. Acute on chronic kidney injury, with mild right hydronephrosis noted on computed tomography scan. We will continue IV fluid hydration. Hold losartan/ hydrochlorothiazide. Repeat lab work in the morning. 5. Type 2 diabetes mellitus with episode of hypoglycemia on presentation, I would discontinue her Levemir for now and continue sliding scale insulin. Today, I reviewed her medication list and lab work results. Continue current regimen. Patient and her kids updated at bedside. All of their questions answered to his satisfaction.
[2017-09-01 11:50] LABS: Albumin 3.2 g/dL (3.5-5.0); Calcium 9.1 mg/dL (8.4-10.2); Magnesium 1.7 mg/dL (1.6-2.3); Potassium 3.5 mmol/L (3.5-5.1); Total Bilirubin 2.3 mg/dL (0.2-1.3); Total Protein 5.7 g/dL (6.3-8.2)
--- NOTE | 2017-09-01 12:08 | P.CONS ---
History of Present Illness - Reason for Consult Consult date: 09/01/17 Biliary dilation Requesting physician: Lobo Kendrick - History of Present Illness 87-year-old female patient of Dr. Stoll past medical history diabetes, hypertension, calculus cholecystectomy 15 years ago, admitted with right upper quadrant pain, pruritus, and new onset of jaundice. Patient has been experiencing right upper quadrant pain 4 months. 40 pound unintentional weight loss since March. Darker colored urine and acholic stools over the last week. Denies hematemesis hematochezia melena. No fever or chills. No changes in medications. Total bilirubin 2.4. Delta 1.9. AST 83. ALT 121. Alkaline phosphatase 965. Lipase 94. White count 4.2. Hemoglobin 11.7. Platelet 197. Lipase 94-153. Previous LFTs 10 days ago total bilirubin 3.6. AST 196. ALT 190. Alkaline phosphatase 1152. Alkaline phosphatase fraction 94% liver. March 2017 total bilirubin 0.8. AST 45. ALT 75. Alkaline phosphatase 207. LFTs normal May 2016. Hepatitis screen nonreactive. AFP 2.8. CEA 1.8. CT abdomen with contrast 08/26/2017; heterogeneous mass posterior segment right hepatic lobe 4.8 cm suspicious for malignancy. Additional adjacent cystic lesion measuring 1.5 cm. Hyperdense lesion near the dome of the liver measuring 7 mm. Additional medial aspect posterior segment of the right hepatic lobe lesion measuring 1.7 cm. Intra-and extrahepatic biliary duct dilatation present. Pancreatic duct 1 cm. Multiple pancreatic calcifications. Nonspecific pulmonary nodules. PET scan 08/26/2016 redemonstrated dilated intra-and extrahepatic biliary ducts. Right posterior hepatic lobe mass with no associated hypermetabolic uptake. Extensive calcifications of the pancreas. Ductal dilation again noted. Indeterminant pulmonary nodule. Review of Systems Constitutional: Denies fever, chills, sweats, weight gain, or loss. HEENT: Negative for migraines, blurred vision or loss, earaches, drainage, tinnitus, oral mucosal lesions, dysphagia, or odynophagia. CARDIAC: Hypertension. Negative for chest pain, arrhythmias, or palpitation. RESPIRATORY: Negative for shortness of breath, hemoptysis, cough, or sputum production. GI: See HPI for pertinent findings. : Negative for hematuria, urgency, frequency, polyuria, or dysuria. GYNc: Denies possibility of . Negative vaginal discharge. MUSCULOSKELETAL: Osteoarthritis. Negative for muscle aches, swelling, arthritis , and arthralgias. NEUROLOGIC: Negative for stroke or TIA. ENDOCRINE: Diabetes mellitus. Negative for thyroid problems. SKIN: Negative for rash or itching. PSYCHIATRIC: Negative history for depression and anxiety Past Medical History Past Medical History: Diabetes Mellitus, Hypertension, Osteoarthritis (OA), Thyroid Disorder Additional Past Medical History / Comment(s): past goiter(sx), hemorroids, cataracts(sx) History of Any Multi-Drug Resistant Organisms: None Reported Past Surgical History: Cholecystectomy Additional Past Surgical History / Comment(s): thyroid surgery-goiter removed in the , colonoscopy, lt breast bx-neg,cataracts Past Anesthesia/Blood Transfusion Reactions: No Reported Reaction Smoking Status: Never smoker - Past Family History Father Additional Family Medical History / Comment(s): alocoholic. pt did'nt know him well Mother Family Medical History: No Reported History Additional Family Medical History / Comment(s): was healthy- at age 92 from "old age" Brother(s) Family Medical History: Cancer Additional Family Medical History / Comment(s): 2 brothers from some form of cancer. Medications and Allergies Home Medications Medication Instructions Recorded Confirmed Type Aspirin 81 mg PO HS 03/16/17 08/31/17 History Atenolol 25 mg PO DAILY 03/16/17 08/31/17 History Isosorbide Mononitrate ER [Imdur] 60 mg PO DAILY 03/16/17 08/31/17 History Losartan/Hydrochlorothiazide 1 tab PO DAILY 03/16/17 08/31/17 History [Hyzaar 100-25 Tablet] Insulin Glargine,Hum.rec.anlog 10 unit SQ HS 08/31/17 08/31/17 History [Basaglar Kwikpen U-100] Allergies Allergy/AdvReac Type Severity Reaction Status Date / Time No Known Allergies Allergy Verified 08/31/17 12:37 Physical Exam Vitals: Vital Signs Temp Pulse Pulse Resp BP BP Pulse Ox 09/01/17 06:24 97.0 F L 60 16 119/58 99 08/31/17 23:00 98.2 F 53 L 16 115/54 98 08/31/17 17:00 97.6 F 62 16 114/73 96 08/31/17 16:29 96.8 F L 56 L 14 106/50 100 08/31/17 14:13 97.4 F L 62 18 101/50 97 08/31/17 12:04 97.6 F 52 L 18 129/61 100 Intake and Output 08/31/17 09/01/17 09/01/17 22:59 06:59 14:59 Other: Voiding Method Toilet # Voids 1 1 General appearance: The patient is alert, oriented, in no acute distress. HET: Head is normocephalic and atraumatic. Pupils are equal and reactive. Sclerae dull. No visible jaundice. Oropharynx is clear without lesions. Neck: Supple without lymphadenopathy. Trachea midline. Heart: S1 S2. Regular rate and rhythm. Lungs: No crackles or wheezes are heard. Abdomen: Soft, mild tenderness right upper quadrant and epigastrium, nondistended with bowel sounds. No peritoneal signs. No palpable organomegaly or masses. Extremities: Normal skin color and turgor. No cyanosis, rash, ulceration, clubbing, or edema. Radial and pedal pulses are 2/4 bilaterally. Neurological: No focal deficits. Strength and sensation are grossly intact. Results CBC & Chem 7: 09/01/17 11:14 08/31/17 12:54 Labs: Abnormal Lab Results - Last 24 Hours (Table) 08/31/17 08/31/17 08/31/17 Range/Units 12:54 12:54 12:58 Lymphocytes # 0.7 L (1.0-4.8) k/uL BUN 29 H (7-17) mg/dL Creatinine 2.17 H (0.52-1.04) mg/dL Glucose 175 H (74-99) mg/dL POC Glucose (mg/dL) (75-99) mg/dL Hemoglobin A1c 7.9 H (4.0-6.0) % Total Bilirubin 2.4 H (0.2-1.3) mg/dL Delta Bilirubin 1.9 H (0.0-0.2) mg/dL AST 83 H (14-36) U/L ALT 121 H (9-52) U/L Alkaline Phosphatase 965 H (38-126) U/L Urine Protein (Negative) Ur Leukocyte Esterase (Negative) Urine WBC (0-5) /hpf Urine Bacteria (None) /hpf Urine Mucus (None) /hpf 08/31/17 08/31/17 08/31/17 Range/Units 13:06 17:29 20:59 Lymphocytes # (1.0-4.8) k/uL BUN (7-17) mg/dL Creatinine (0.52-1.04) mg/dL Glucose (74-99) mg/dL POC Glucose (mg/dL) 173 H 271 H (75-99) mg/dL Hemoglobin A1c (4.0-6.0) % Total Bilirubin (0.2-1.3) mg/dL Delta Bilirubin (0.0-0.2) mg/dL AST (14-36) U/L ALT (9-52) U/L Alkaline Phosphatase (38-126) U/L Urine Protein Trace H (Negative) Ur Leukocyte Esterase Moderate H (Negative) Urine WBC 8 H (0-5) /hpf Urine Bacteria Rare H (None) /hpf Urine Mucus Rare H (None) /hpf 09/01/17 Range/Units 07:05 Lymphocytes # (1.0-4.8) k/uL BUN (7-17) mg/dL Creatinine (0.52-1.04) mg/dL Glucose (74-99) mg/dL POC Glucose (mg/dL) 68 L (75-99) mg/dL Hemoglobin A1c (4.0-6.0) % Total Bilirubin (0.2-1.3) mg/dL Delta Bilirubin (0.0-0.2) mg/dL AST (14-36) U/L ALT (9-52) U/L Alkaline Phosphatase (38-126) U/L Urine Protein (Negative) Ur Leukocyte Esterase (Negative) Urine WBC (0-5) /hpf Urine Bacteria (None) /hpf Urine Mucus (None) /hpf Comments: PET scan report reviewed by Dr. Garay CT scan - abdomen: report reviewed (Dr. Garay) Assessment and Plan (1) Obstructive jaundice Narrative/Plan: Intra and extrahepatic biliary dilatation per radiographic imaging with evidence of multiple liver masses suspicious for malignancy until proven otherwise. Etiology of obstructive jaundice possible choledocholithiasis possible malignancy possible stricturing disease. Current Visit: Yes Status: Acute Code(s): K83.8 - OTHER SPECIFIED DISEASES OF BILIARY TRACT SNOMED Code(s): 42757667 (2) Liver mass Narrative/Plan: Multiple liver masses per abdominal imaging. Suspicious for malignancy until proven otherwise. Current Visit: Yes Status: Acute Code(s): R16.0 - HEPATOMEGALY, NOT ELSEWHERE CLASSIFIED SNOMED Code(s): 843097426 (3) Right upper quadrant abdominal pain Current Visit: Yes Status: Acute Code(s): R10.11 - RIGHT UPPER QUADRANT PAIN SNOMED Code(s): 853094726 (4) Unintentional weight loss Current Visit: Yes Status: Acute Code(s): R63.4 - ABNORMAL WEIGHT LOSS SNOMED Code(s): 941638493 (5) Elevated liver enzymes Current Visit: Yes Status: Acute Code(s): R74.8 - ABNORMAL LEVELS OF OTHER SERUM ENZYMES SNOMED Code(s): 609531678 (6) Pancreatic calcification Narrative/Plan: Possible chronic pancreatitis with unremarkable pancreatitc enzymes. Current Visit: Yes Status: Chronic Code(s): K86.89 - OTHER SPECIFIED DISEASES OF PANCREAS SNOMED Code(s): 884296605 Plan: 1. PET scan and CT results were reviewed with patient and family at bedside. 2. Recommend ERCP for further investigation of jaundice and elevated liver enzymes. 3. Recommend liver biopsy however patient was receiving aspirin therapy prior to admission. Per interventional radiology protocol aspirin products need to be held 7 days prior to liver biopsy. This can be scheduled in the outpatient setting as early as next week. 4. Oncology consultation. 5. CA-19-9 marker. Diet as tolerated today. Nothing by mouth after midnight for endoscopic evaluation tomorrow. We'll follow closely with you. The [employer] has discussed the risks, benefits and alternative therapies for the above-mentioned procedure and for both sedation/analgesia as well as necessary blood product administration, if indicated, as they pertain to this patient. The patient has indicated understanding and acceptance of the risks and procedures discussed. Thank you for this kind referral and the opportunity to participate in the care of your patient. This consultation was discussed with Dr. Garay. The impression and plan of care have been directed as dictated.
[2017-09-01] MEDS: SODIUM CHLORIDE 0.9% 1,000 ML IV SCH ×2 (12:27→16:33)
[2017-09-01 12:32] LABS: Glucose,Whole Blood 54 mg/dL (75-99)
[2017-09-01 13:03] LABS: Glucose,Whole Blood 62 mg/dL (75-99)
[2017-09-01 13:29] LABS: Glucose,Whole Blood 117 mg/dL (75-99)
[2017-09-01 14:38] VITALS: BMI 23.9
[2017-09-01 17:23] LABS: Glucose,Whole Blood 182 mg/dL (75-99)
[2017-09-01 20:48] LABS: Glucose,Whole Blood 251 mg/dL (75-99)
[2017-09-01] MEDS: HEPARIN SODIUM,PORCINE 5,000 UNIT/ML 1 ML VIAL SQ SCH (21:08)
[2017-09-02] MEDS: SODIUM CHLORIDE 0.9% 1,000 ML IV SCH ×3 (00:48→22:23)
[2017-09-02 07:28] LABS: Glucose,Whole Blood 108 mg/dL (75-99)
[2017-09-02] MEDS: INSULIN ASPART 100 UNIT/ML 1 ML 10 ML VIAL SQ SCH ×4 (07:40→22:02)
[2017-09-02 07:57] LABS: Basophils % (A) 1 %; Eosinophils # (A) 0.4 k/uL (0-0.7); Eosinophils % (A) 13 %; HGB 10.4 gm/dL (11.4-16.0); Lymphocytes # (A) 0.9 k/uL (1.0-4.8); Lymphocytes % (A) 30 %; MCH 29.4 pg (25.0-35.0); MCHC 31.6 g/dL (31.0-37.0); MCV 93.1 fL (80.0-100.0); Mean Platelet Volume 8.2; Monocytes # (A) 0.3 k/uL (0-1.0); Monocytes % (A) 9 %; Neutrophils # (A) 1.3 k/uL (1.3-7.7); Neutrophils % (A) 44 %; Platelet Count 160 k/uL (150-450); RBC 3.54 m/uL (3.80-5.40); RDW 14.2 % (11.5-15.5); WBC 2.9 k/uL (3.8-10.6)
[2017-09-02 07:59] LABS: Prothrombin Time 10.1 sec (9.0-12.0)
[2017-09-02 08:19] LABS: Albumin 2.8 g/dL (3.5-5.0); Calcium 8.6 mg/dL (8.4-10.2); Magnesium 1.6 mg/dL (1.6-2.3); Phosphorus 3.8 mg/dL (2.5-4.5); Potassium 3.8 mmol/L (3.5-5.1); Total Bilirubin 2.1 mg/dL (0.2-1.3); Total Protein 5.2 g/dL (6.3-8.2)
[2017-09-02] MEDS: HEPARIN SODIUM,PORCINE 5,000 UNIT/ML 1 ML VIAL SQ SCH ×2 (08:20→21:45)
[2017-09-02] MEDS: ISOSORBIDE MONONITRATE ER 60 MG TAB.ER.24H PO SCH (08:22)
[2017-09-02] MEDS: diphenhydrAMINE 2% CREAM 28.4 GM TUBE TOPICAL SCH ×2 (08:22→21:48)
[2017-09-02] MEDS: ATENOLOL 25 MG TAB PO SCH (08:22)
[2017-09-02] MEDS ORDERED: LEVOFLOXACIN 500MG-D5W PMX 500 MG in DEXTROSE/WATER 1 100ML.BAG IVPB ONE (12:30)
[2017-09-02] MEDS ORDERED: INDOMETHACIN 50MG SUPPOSITORY RECTAL ONE (12:30)
[2017-09-02 12:31] LABS: Glucose,Whole Blood 112 mg/dL (75-99)
--- NOTE | 2017-09-02 12:42 | P.PN ---
Subjective Progress Note Date: 09/02/17 Patient is doing fairly well today. She's having worsening rash on both arms that is itchy. Patient is taking Benadryl. No abdominal pain. Objective - Vital Signs Vital signs: Vital Signs Temp 97.8 F 09/02/17 07:00 Pulse 49 L 09/02/17 07:00 Resp 16 09/01/17 23:00 BP 106/64 09/02/17 07:00 Pulse Ox 92 L 09/02/17 07:00 Intake & Output 09/01/17 09/02/17 09/02/17 18:59 06:59 18:59 Weight 59.421 kg Other: Voiding Method Toilet Toilet # Voids 2 1 - Exam General: The patient is awake and alert, in no distress Eye: there is normal conjunctiva bilaterally. Neck: The neck is supple, there is no JVD. Cardiovascular: Normal S1-S2, no S3-S4, no murmurs. Respiratory: Lungs clear to auscultation bilaterally Gastrointestinal: Abdomen is soft, nontender Musculoskeletal: There is no pedal edema. Neurological:. Speech is normal. Skin: Skin is warm and dry . There is scattered erythematous rash on both arms mostly on the medial aspect. Rash on the abdomen resolved compared to yesterday. Rash on her back is improving significantly. - Labs CBC & Chem 7: 09/02/17 07:25 09/02/17 07:25 Labs: Abnormal Lab Results - Last 24 Hours (Table) 09/01/17 09/01/17 09/01/17 Range/Units 12:43 13:26 17:11 WBC (3.8-10.6) k/uL RBC (3.80-5.40) m/uL Hgb (11.4-16.0) gm/dL Hct (34.0-46.0) % Lymphocytes # (1.0-4.8) k/uL Chloride (98-107) mmol/L BUN (7-17) mg/dL Creatinine (0.52-1.04) mg/dL Glucose (74-99) mg/dL POC Glucose (mg/dL) 62 L 117 H 182 H (75-99) mg/dL Total Bilirubin (0.2-1.3) mg/dL AST (14-36) U/L ALT (9-52) U/L Alkaline Phosphatase (38-126) U/L Total Protein (6.3-8.2) g/dL Albumin (3.5-5.0) g/dL 09/01/17 09/02/17 09/02/17 Range/Units 20:46 07:17 07:25 WBC 2.9 L (3.8-10.6) k/uL RBC 3.54 L (3.80-5.40) m/uL Hgb 10.4 L (11.4-16.0) gm/dL Hct 33.0 L (34.0-46.0) % Lymphocytes # 0.9 L (1.0-4.8) k/uL Chloride (98-107) mmol/L BUN (7-17) mg/dL Creatinine (0.52-1.04) mg/dL Glucose (74-99) mg/dL POC Glucose (mg/dL) 251 H 108 H (75-99) mg/dL Total Bilirubin (0.2-1.3) mg/dL AST (14-36) U/L ALT (9-52) U/L Alkaline Phosphatase (38-126) U/L Total Protein (6.3-8.2) g/dL Albumin (3.5-5.0) g/dL 09/02/17 09/02/17 Range/Units 07:25 11:56 WBC (3.8-10.6) k/uL RBC (3.80-5.40) m/uL Hgb (11.4-16.0) gm/dL Hct (34.0-46.0) % Lymphocytes # (1.0-4.8) k/uL Chloride 108 H (98-107) mmol/L BUN 28 H (7-17) mg/dL Creatinine 1.95 H (0.52-1.04) mg/dL Glucose 109 H (74-99) mg/dL POC Glucose (mg/dL) 112 H (75-99) mg/dL Total Bilirubin 2.1 H (0.2-1.3) mg/dL AST 154 H (14-36) U/L ALT 138 H (9-52) U/L Alkaline Phosphatase 810 H (38-126) U/L Total Protein 5.2 L (6.3-8.2) g/dL Albumin 2.8 L (3.5-5.0) g/dL Assessment and Plan Assessment: 1. Right lobe liver mass measuring approximately 4.8 cm, could be benign as there is no hypermetabolic uptake evident on PET scan. Awaiting input from oncology. May consider CT-guided biopsy. IR consulted. Patient is on aspirin at home which is currently on hold starting 07/01/2018. 2. Hyperbilirubinemia/obstructive jaundice: Bilirubin is slightly elevated. Patient was seen and evaluated by GI. Scheduled for ERCP today 3. Mild transaminitis, probably secondary to underlying liver mass. Patient denies alcohol use. Viral hepatitis panel done last week was negative. 4. Acute on chronic kidney injury, with mild right hydronephrosis noted on computed tomography scan. We will continue IV fluid hydration. Hold losartan/ hydrochlorothiazide. Repeat lab work in the morning. Creatinine trending down slowly 5. Type 2 diabetes mellitus with episode of hypoglycemia on presentation, I would discontinue her Levemir for now and continue sliding scale insulin. 6. Uncomplicated urinary tract infection given 1 dose of Levaquin. Today, I reviewed her medication list and lab work results. Continue current regimen. Patient and her kids updated at bedside. All of their questions answered to his satisfaction.
[2017-09-02] MEDS: FAMOTIDINE 20 MG/2 ML VIAL IV SCH ×2 (13:07→21:48)
[2017-09-02] MEDS ORDERED: GLYCOPYRROLATE 0.2 MG/ML 2 ML VIAL ONE (14:54)
[2017-09-02] MEDS ORDERED: PROPOFOL 10 MG/ML 20 ML VIAL IV ONE (14:54)
[2017-09-02] MEDS ORDERED: MIDAZOLAM 2 MG/2 ML VIAL ONE (14:54)
[2017-09-02] MEDS ORDERED: KETAMINE 10 MG/ML 20 ML VIAL ONE (14:54)
[2017-09-02] MEDS ORDERED: IV FLUID CONTINUATION 1,000 ML IV ONE (14:59)
--- NOTE | 2017-09-02 15:34 | P.PCN ---
Date of Procedure: 09/02/17 Procedure(s) Performed: Procedure: Esophagogastroduodenoscopy, this was an attempt for ERCP. Preoperative diagnosis: Abdominal symptoms and abnormal liver enzymes and imaging studies. Postoperative diagnosis: No obvious abnormalities noted in the distal esophagus , stomach or duodenum. There was crowding of the folds in the descending duodenum making us unable to identify the area of the papilla in order to inject and perform an ERCP. Preparation sedation: Was provided by anesthesia. Brief clinical history: The patient is an 87-year-old female with past medical history of diabetes, hypertension, calculus cholecystectomy 15 years ago, admitted with right upper quadrant pain, pruritus, and new onset of jaundice. Patient has been experiencing right upper quadrant pain 4 months. Reported 40 pound unintentional weight loss since March. Darker colored urine and acholic stools over the last week. Denies hematemesis, hematochezia or melena. No fever or chills. No changes in medications. Total bilirubin 2.4. Delta 1.9. AST 83. ALT 121. Alkaline phosphatase 965. Lipase 94. White count 4.2. Hemoglobin 11.7. Platelet 197. Lipase 94-153. Previous LFTs 10 days ago total bilirubin 3.6. AST 196. ALT 190. Alkaline phosphatase 1152. Alkaline phosphatase fraction 94% liver. March 2017 total bilirubin 0.8. AST 45. ALT 75. Alkaline phosphatase 207. LFTs normal May 2016. Hepatitis screen nonreactive. AFP 2.8. CEA 1.8. CT abdomen with contrast 08/26/2017; heterogeneous mass posterior segment right hepatic lobe 4.8 cm suspicious for malignancy. Additional adjacent cystic lesion measuring 1.5 cm. Hyperdense lesion near the dome of the liver measuring 7 mm. Additional medial aspect posterior segment of the right hepatic lobe lesion measuring 1.7 cm. Intra-and extrahepatic biliary duct dilatation present. Pancreatic duct 1 cm. Multiple pancreatic calcifications. Nonspecific pulmonary nodules. The details are summarized in the history and physical and dictated consultation and progress notes. This evaluation is intended to visualize the biliary tree and pancreatic duct to identify any extrahepatic pathology. Procedure: With the patient in the prone position and after informed consent and adequate sedation, I passed the Olympus video duodenoscope down the esophagus into the stomach then passed it through the pylorus into the duodenum. I spent some time inspecting the descending duodenum antrum to locate the papilla. There was crowding of the folds in that area and I was unable to distend
[2017-09-02 17:32] LABS: Glucose,Whole Blood 163 mg/dL (75-99)
--- NOTE | 2017-09-02 19:29 | P.CONS ---
History of Present Illness - Reason for Consult Consult date: 09/02/17 Liver nodules. Biliary obstruction - History of Present Illness The patient is an 87-year-old lady with generally well controlled medical problems. She states that she developed some vague right-sided upper abdominal discomfort about 3-4 months ago. The pain would radiate around to the mid abdomen and the left side. She did not recall any specific aggravating or relieving factors other than certain kinds of foods. She did note decreased appetite, as well as slow progression in severity of the pain, and occurrence of episodes. She reported this to her primary care physician and workup was initiated including CT scan of the abdomen and pelvis. This revealed evidence of a nodular liver lesion, measuring about 3.8 cm in the right hepatic lobe with some adjacent nonspecific small or lesions. Extra- and intrahepatic biliary ductal dilation was noted. The patient then underwent a PET scan, which actually showed no uptake other than that a mild nonspecific level in a subcentimeter left lung nodule. In the meantime the patient had continued to lose weight, to the extent of about 40 pounds in the last 4 months. Her symptoms had been progressive, with labs showing elevated liver enzymes. She was therefore sent in to the hospital for admission. Consult was placed for further evaluation and recommendations Review of Systems Constitutional: Reports chronic pain, Reports poor appetite, Reports weight loss Eyes: denies blurred vision, denies pain Ears: deny: decreased hearing, ear discharge, earache, tinnitus Ears, nose, mouth and throat: Denies headache, Denies sore throat Cardiovascular: Reports decreased exercise tolerance Respiratory: Denies cough Gastrointestinal: Reports abdominal pain, Reports nausea Genitourinary: Reports as per HPI (Dark colored urine over the last week), Reports urinary frequency Menstruation: Reports postmenopausal Musculoskeletal: Reports muscle weakness Integumentary: Reports pruritus Neurological: Denies numbness, Denies weakness Psychiatric: Denies anxiety, Denies depression Endocrine: Reports fatigue, Reports weight change Hematologic/Lymphatic: Reports as per HPI Past Medical History Past Medical History: Diabetes Mellitus, Hypertension, Osteoarthritis (OA), Thyroid Disorder Additional Past Medical History / Comment(s): past goiter(sx), hemorroids, cataracts(sx) History of Any Multi-Drug Resistant Organisms: None Reported Past Surgical History: Cholecystectomy Additional Past Surgical History / Comment(s): thyroid surgery-goiter removed in the 1960's, colonoscopy, lt breast bx-neg,cataracts Past Anesthesia/Blood Transfusion Reactions: No Reported Reaction Smoking Status: Never smoker - Past Family History Father Additional Family Medical History / Comment(s): alocoholic. pt did'nt know him well Mother Family Medical History: No Reported History Additional Family Medical History / Comment(s): was healthy- at age 92 from "old age" Brother(s) Family Medical History: Cancer Additional Family Medical History / Comment(s): 2 brothers from some form of cancer. Medications and Allergies Home Medications Medication Instructions Recorded Confirmed Type Aspirin 81 mg PO HS 03/16/17 08/31/17 History Atenolol 25 mg PO DAILY 03/16/17 08/31/17 History Isosorbide Mononitrate ER [Imdur] 60 mg PO DAILY 03/16/17 08/31/17 History Losartan/Hydrochlorothiazide 1 tab PO DAILY 03/16/17 08/31/17 History [Hyzaar 100-25 Tablet] Insulin Glargine,Hum.rec.anlog 10 unit SQ HS 08/31/17 08/31/17 History [Basaglar Kwikpen U-100] Allergies Allergy/AdvReac Type Severity Reaction Status Date / Time No Known Allergies Allergy Verified 08/31/17 12:37 Physical Exam Vitals: Vital Signs Temp Pulse Resp BP Pulse Ox 09/02/17 15:00 96.9 F L 60 20 123/56 97 09/02/17 14:23 97.8 F 49 L 16 106/64 92 L 09/02/17 07:00 97.8 F 49 L 106/64 92 L 09/01/17 23:00 97.1 F L 54 L 16 140/64 98 Intake and Output 09/02/17 09/02/17 09/02/17 06:59 14:59 22:59 Intake Total 950 Balance 950 Intake: IV 950 Levofloxacin 500Mg-D5w 100 Pmx 500 mg In Dextrose/ Water 1 100ml.bag @ 100 mls/hr IVPB ONCE ONE Rx#: [id number] Sodium Chloride 0.9% 1, 800 000 ml @ 100 mls/hr IV . Q10H BLAYNE Rx#:[id number] Other: # Voids 1 1 # Bowel Movements 2 - Constitutional General appearance: no acute distress - EENT Eyes: EOMI, PERRLA ENT: hearing grossly normal, normal oropharynx - Neck Neck: no lymphadenopathy Thyroid: bilateral: normal size - Respiratory Respiratory: bilateral: CTA - Cardiovascular Rhythm: regular Heart sounds: normal: S1, S2 - Gastrointestinal General gastrointestinal: hepatomegaly (Liver edge just palpable on deep inspiration) - Integumentary Integumentary: normal - Neurologic Neurologic: CNII-XII intact - Musculoskeletal Musculoskeletal: generalized weakness, strength equal bilaterally Results CBC & Chem 7: 09/02/17 07:25 09/02/17 07:25 Labs: Abnormal Lab Results - Last 24 Hours (Table) 09/01/17 09/02/17 09/02/17 Range/Units 20:46 07:17 07:25 WBC 2.9 L (3.8-10.6) k/uL RBC 3.54 L (3.80-5.40) m/uL Hgb 10.4 L (11.4-16.0) gm/dL Hct 33.0 L (34.0-46.0) % Lymphocytes # 0.9 L (1.0-4.8) k/uL Chloride (98-107) mmol/L BUN (7-17) mg/dL Creatinine (0.52-1.04) mg/dL Glucose (74-99) mg/dL POC Glucose (mg/dL) 251 H 108 H (75-99) mg/dL Total Bilirubin (0.2-1.3) mg/dL AST (14-36) U/L ALT (9-52) U/L Alkaline Phosphatase (38-126) U/L Total Protein (6.3-8.2) g/dL Albumin (3.5-5.0) g/dL 09/02/17 09/02/17 09/02/17 Range/Units 07:25 11:56 17:11 WBC (3.8-10.6) k/uL RBC (3.80-5.40) m/uL Hgb (11.4-16.0) gm/dL Hct (34.0-46.0) % Lymphocytes # (1.0-4.8) k/uL Chloride 108 H (98-107) mmol/L BUN 28 H (7-17) mg/dL Creatinine 1.95 H (0.52-1.04) mg/dL Glucose 109 H (74-99) mg/dL POC Glucose (mg/dL) 112 H 163 H (75-99) mg/dL Total Bilirubin 2.1 H (0.2-1.3) mg/dL AST 154 H (14-36) U/L ALT 138 H (9-52) U/L Alkaline Phosphatase 810 H (38-126) U/L Total Protein 5.2 L (6.3-8.2) g/dL Albumin 2.8 L (3.5-5.0) g/dL Comments: PET scan report reviewed CT scan - abdomen: report reviewed CT scan - pelvis: report reviewed Assessment and Plan (1) Liver mass Narrative/Plan: The CT scan report was suspicious for malignancy. However the PET scan did not show any uptake in the liver masses. The clinical impression and implications were discussed in detail with the patient and multiple family members. In my opinion, malignancy is still remains a major consideration, especially given the presence of biliary ductal dilation. While typically malignancies with this presentation, such as duodenal or pancreatic cancers would be PET avid, a lower grade non-PET avid malignancy cannot be ruled out. Therefore at this point the patient should still proceed with cancer workup. This would include liver biopsy. However this will need to be delayed as the patient has been on aspirin. The patient will need an ERCP given the presence of biliary obstruction, which could potentially reveal target for biopsy also. Tumor markers have been ordered by GI and are pending Current Visit: Yes Status: Acute Code(s): R16.0 - HEPATOMEGALY, NOT ELSEWHERE CLASSIFIED SNOMED Code(s): 940751288 (2) Obstructive jaundice Narrative/Plan: The presence of obstructive jaundice and liver masses, are most suspicious for malignancy in that area, especially pancreatic or duodenal. As noted PET scan was surprisingly negative. Given the elevated liver enzymes and CT findings , the patient does need an ERCP. This is to be done by GI yesterday. It was discussed with the patient and her family, that if findings amenable to biopsy were noted and yielded tissue diagnosis, that she would not certainly need a liver biopsy. Current Visit: Yes Status: Acute Code(s): K83.8 - OTHER SPECIFIED DISEASES OF BILIARY TRACT SNOMED Code(s): 94068624
[2017-09-02 21:18] LABS: Glucose,Whole Blood 201 mg/dL (75-99)
[2017-09-02 22:39] VITALS: RESP 18
[2017-09-03] MEDS: SODIUM CHLORIDE 0.9% 1,000 ML IV SCH (05:31)
[2017-09-03] MEDS: diphenhydrAMINE 2% CREAM 28.4 GM TUBE TOPICAL SCH (07:32)
[2017-09-03] MEDS: FAMOTIDINE 20 MG/2 ML VIAL IV SCH (07:33)
[2017-09-03] MEDS: ATENOLOL 25 MG TAB PO SCH (07:33)
[2017-09-03] MEDS: HEPARIN SODIUM,PORCINE 5,000 UNIT/ML 1 ML VIAL SQ SCH ×2 (07:33→07:36)
[2017-09-03] MEDS: ISOSORBIDE MONONITRATE ER 60 MG TAB.ER.24H PO SCH (07:34)
[2017-09-03] MEDS: INSULIN ASPART 100 UNIT/ML 1 ML 10 ML VIAL SQ SCH ×2 (07:36→13:26)
[2017-09-03 07:40] LABS: Glucose,Whole Blood 144 mg/dL (75-99)
[2017-09-03 08:19] VITALS: BP 125/64; PULSE 55; TEMP 97.1
[2017-09-03 09:13] LABS: Basophils % (A) 1 %; Eosinophils # (A) 0.3 k/uL (0-0.7); Eosinophils % (A) 9 %; HCT 34.3 % (34.0-46.0); HGB 10.8 gm/dL (11.4-16.0); Lymphocytes # (A) 0.9 k/uL (1.0-4.8); Lymphocytes % (A) 31 %; MCH 29.7 pg (25.0-35.0); MCHC 31.6 g/dL (31.0-37.0); MCV 94.1 fL (80.0-100.0); Mean Platelet Volume 8.5; Monocytes # (A) 0.2 k/uL (0-1.0); Monocytes % (A) 8 %; Neutrophils # (A) 1.3 k/uL (1.3-7.7); Neutrophils % (A) 48 %; Platelet Count 164 k/uL (150-450); RBC 3.65 m/uL (3.80-5.40); WBC 2.8 k/uL (3.8-10.6)
[2017-09-03 09:26] LABS: Calcium 8.3 mg/dL (8.4-10.2); Magnesium 1.5 mg/dL (1.6-2.3); Phosphorus 3.7 mg/dL (2.5-4.5); Potassium 4.2 mmol/L (3.5-5.1); Total Bilirubin 1.9 mg/dL (0.2-1.3); Total Protein 5.5 g/dL (6.3-8.2)
--- NOTE | 2017-09-03 11:08 | P.PN ---
Subjective Progress Note Date: 09/03/17 Principal diagnosis: Obstructive jaundice liver mass Unsuccessful ERCP yesterday. Liver biopsy scheduled next week. Reports rash on backside with pruritus. Mild RUQ discomfort nothing severe. Afebrile. LFTS slightly improved from yesterday; Tbili 1.9. Objective - Vital Signs Vital signs: Vital Signs Temp 97.1 F L 09/03/17 07:00 Pulse 55 L 09/03/17 07:00 Resp 18 09/03/17 07:43 BP 125/64 09/03/17 07:00 Pulse Ox 97 09/03/17 07:00 Intake & Output 09/02/17 09/03/17 09/03/17 18:59 06:59 18:59 Intake Total 950 400 Balance 950 400 Weight 59.421 kg Intake: IV 950 Levofloxacin 500Mg-D5w 100 Pmx 500 mg In Dextrose/ Water 1 100ml.bag @ 100 mls/hr IVPB ONCE ONE Rx#: [id number] Sodium Chloride 0.9% 1, 800 000 ml @ 100 mls/hr IV . Q10H BLAYNE Rx#:[id number] Oral 400 Other: Voiding Method Toilet Toilet # Voids 1 2 # Bowel Movements 2 - Exam General appearance: The patient is alert, oriented, in no acute distress. HET: Head is normocephalic and atraumatic. Pupils are equal and reactive. Oropharynx is clear without lesions. Neck: Supple without lymphadenopathy. Trachea midline. Heart: S1 S2. Regular rate and rhythm. Lungs: No crackles or wheezes are heard. Abdomen: Soft, mild RUQ tenderness. nondistended with bowel sounds. No peritoneal signs. No palpable organomegaly or masses. Extremities: Pruritic rash backside. Normal skin color and turgor. No cyanosis , rash, ulceration, clubbing, or edema. Radial and pedal pulses are 2/4 bilaterally. Neurological: No focal deficits. Strength and sensation are grossly intact. - Labs CBC & Chem 7: 09/03/17 08:15 09/03/17 08:15 Labs: Abnormal Lab Results - Last 24 Hours (Table) 09/02/17 09/02/17 09/02/17 Range/Units 11:56 17:11 20:57 WBC (3.8-10.6) k/uL RBC (3.80-5.40) m/uL Hgb (11.4-16.0) gm/dL Lymphocytes # (1.0-4.8) k/uL BUN (7-17) mg/dL Creatinine (0.52-1.04) mg/dL Glucose (74-99) mg/dL POC Glucose (mg/dL) 112 H 163 H 201 H (75-99) mg/dL Calcium (8.4-10.2) mg/dL Magnesium (1.6-2.3) mg/dL Total Bilirubin (0.2-1.3) mg/dL AST (14-36) U/L ALT (9-52) U/L Alkaline Phosphatase (38-126) U/L Total Protein (6.3-8.2) g/dL Albumin (3.5-5.0) g/dL 09/03/17 09/03/17 09/03/17 Range/Units 07:16 08:15 08:15 WBC 2.8 L (3.8-10.6) k/uL RBC 3.65 L (3.80-5.40) m/uL Hgb 10.8 L (11.4-16.0) gm/dL Lymphocytes # 0.9 L (1.0-4.8) k/uL BUN 30 H (7-17) mg/dL Creatinine 1.86 H (0.52-1.04) mg/dL Glucose 166 H (74-99) mg/dL POC Glucose (mg/dL) 144 H (75-99) mg/dL Calcium 8.3 L (8.4-10.2) mg/dL Magnesium 1.5 L (1.6-2.3) mg/dL Total Bilirubin 1.9 H (0.2-1.3) mg/dL AST 66 H (14-36) U/L ALT 106 H (9-52) U/L Alkaline Phosphatase 814 H (38-126) U/L Total Protein 5.5 L (6.3-8.2) g/dL Albumin 3.0 L (3.5-5.0) g/dL Assessment and Plan (1) Obstructive jaundice Narrative/Plan: Intra and extrahepatic biliary dilatation per radiographic imaging with evidence of multiple liver masses suspicious for malignancy until proven otherwise. Etiology of obstructive jaundice possible choledocholithiasis possible malignancy possible stricturing disease. Status post unsuccessful attempt for ERCP evaluation unable to identify the papilla. Current Visit: Yes Status: Acute Code(s): K83.8 - OTHER SPECIFIED DISEASES OF BILIARY TRACT SNOMED Code(s): 12438005 (2) Liver mass Narrative/Plan: Multiple liver masses per abdominal imaging. Suspicious for malignancy until proven otherwise. Current Visit: Yes Status: Acute Code(s): R16.0 - HEPATOMEGALY, NOT ELSEWHERE CLASSIFIED SNOMED Code(s): 166325041 (3) Right upper quadrant abdominal pain Current Visit: Yes Status: Acute Code(s): R10.11 - RIGHT UPPER QUADRANT PAIN SNOMED Code(s): 223371489 (4) Unintentional weight loss Current Visit: Yes Status: Acute Code(s): R63.4 - ABNORMAL WEIGHT LOSS SNOMED Code(s): 955811884 (5) Elevated liver enzymes Current Visit: Yes Status: Acute Code(s): R74.8 - ABNORMAL LEVELS OF OTHER SERUM ENZYMES SNOMED Code(s): 912738174 (6) Pancreatic calcification Narrative/Plan: Possible chronic pancreatitis with unremarkable pancreatitc enzymes. Current Visit: Yes Status: Chronic Code(s): K86.89 - OTHER SPECIFIED DISEASES OF PANCREAS SNOMED Code(s): 343059115 Plan: 1. DC per medicine and oncology. 2. Liver biopsy scheduled 09/07/17 at [facility] 0800. 3. Continue to hold ASA. 4. RTO 2 weeks. Assessment and plan of care discussed with Dr. Garay
[2017-09-03 12:35] LABS: Glucose,Whole Blood 230 mg/dL (75-99)
--- NOTE | 2017-09-03 12:47 | P.DS ---
Providers Date of admission: 08/31/17 14:13 Expected date of discharge: 09/03/17 Attending physician: Lobo Kendrick Consults: 08/31/17 14:14 Consult Physician Routine Consulting Provider: Sujatha Enriquez Consult Reason/Comments: Hyperbilirubinemia. Biliary dilation Do you want consulting provider notified?: Yes 09/01/17 11:00 Consult Physician Routine Consulting Provider: Helio Cervantes Consult Reason/Comments: liver mass Do you want consulting provider notified?: Yes Primary care physician: [facility] Course: 1. Right lobe liver mass measuring approximately 4.8 cm, with high suspicion for malignancy despite negative PET scan. Patient would need a liver biopsy. Patient is on aspirin at home which is currently on hold starting 07/01/2018. Liver biopsy will be scheduled for next week. Tumor markers sent and pending. Follow-up with oncology outpatient. 2. Hyperbilirubinemia/obstructive jaundice: Bilirubin is slightly elevated. Patient was seen and evaluated by GI. She underwent an EGD showing no obvious abnormalities including the distal esophagus, stomach, or duodenum. ERCP was unsuccessful due to anatomic difficulty. 3. Mild transaminitis, probably secondary to underlying liver mass. Patient denies alcohol use. Viral hepatitis panel done last week was negative. Advised to avoid Tylenol use at this time 4. Acute on chronic kidney injury, with mild right hydronephrosis noted on computed tomography scan. Discontinued losartan/hydrochlorothiazide. Blood pressure remained within normal range. Creatinine on discharge around 1.9 5. Type 2 diabetes mellitus Patient Condition at Discharge: Poor Plan - Discharge Summary Discharge Rx Participant: No New Discharge Prescriptions: Continue Isosorbide Mononitrate ER [Imdur] 60 mg PO DAILY Atenolol 25 mg PO DAILY Insulin Glargine,Hum.rec.anlog [Basaglar Kwikpen U-100] 10 unit SQ HS Discontinued Losartan/Hydrochlorothiazide [Hyzaar 100-25 Tablet] 1 tab PO DAILY Aspirin 81 mg PO HS Discharge Medication List Atenolol 25 mg PO DAILY 03/16/17 [History] Isosorbide Mononitrate ER [Imdur] 60 mg PO DAILY 03/16/17 [History] Insulin Glargine,Hum.rec.anlog [Basaglar Kwikpen U-100] 10 unit SQ HS 08/31/17 [ History] Follow up Appointment(s)/Referral(s): Felix Garay MD [STAFF PHYSICIAN] - 09/21/17 4:15 pm Camryn Walls MD [Primary Care Provider] - 1 Week Ambulatory/Diagnostic Orders: Miscellaneous Radiology Order [RAD.AMB] Time Frame: 09/07/17, Location: Determined By Patient Patient Instructions/Handouts: Percutaneous Liver Biopsy (DC) Activity/Diet/Wound Care/Special Instructions: Diabetic diet. Activity as tolerated. Liver biopsy 09/07/17 0800 arrival at [facility]. Discharge Disposition: HOME SELF-CARE
== END 2017-09-03 13:44 | disposition home or self-care (01) | DRG 436 ==
LOC: EC 12:00 → 4MS4W 14:13
PROVIDERS: ADMIT Internal Medicine; ATTEND Internal Medicine
PROC: 0FJB8ZZ Inspection of Hepatobiliary Duct, Via Natural or Artificial Opening Endoscopic (ICD-10-PCS; principal; 2017-09-02 12:35)
DX: C22.8 Malignant neoplasm of liver, primary, unspecified as to type (principal); K86.1 Other chronic pancreatitis; N17.9 Acute kidney failure, unspecified; E11.22 Type 2 diabetes mellitus with diabetic chronic kidney disease; N13.30 Unspecified hydronephrosis; N39.0 Urinary tract infection, site not specified; I12.9 Hypertensive chronic kidney disease with stage 1 through stage 4 chronic kidney disease, or unspecified chronic kidney disease; L29.9 Pruritus, unspecified; N18.9 Chronic kidney disease, unspecified; Z79.82 Long term (current) use of aspirin; Z79.899 Other long term (current) drug therapy
CPT/HCPCS: 36415; 43235; 78815; 80053; 81001; 82248; 83036; 83690; 83735; 84100; 85025; 85610; 86301; 99285

== ENCOUNTER → 2017-09-06 | Outpatient (CLI) | payer MEDICARE, BC ==
--- NOTE | 2017-09-06 11:24 | MR ---
MRCP HISTORY: Hepatomegaly, abnormal liver function tests, liver mass Multiplanar multisequence imaging through the liver. Three-dimensional post processing performed thro [facility] the biliary system. Correlation to prior nuclear medicine PET/CT 08/28/2017, CT abdomen 08/26/2017. No more remote exams av ailable for comparison. There is marked intra and extrahepatic biliary ductal dilatation, pancreatic ductal dilatation. Dista l common bile duct tapers into a rattail appearance. Lack of contrast may compromise sensitivity. Pat ient is post cholecystectomy. There is a mixed solid cystic mass in the posterior segment of the righ t lobe of the liver towards the dome which correlates with the abnormality seen on CT and PET/CT. It measures approximately 5.3 cm in AP dimension by 3.4 cm x 3.9 cm and does not show any mass effect on the biliary system. There are multiple smaller cystic foci foci which were noted to have some periph eral nodular enhancement on CT compatible with possible hemangiomas. Extensive cystic dilatation of t he pancreatic ducts and extending into the pancreatic parenchyma. Left adrenal mass shows signal drop on out of phase imaging compatible with adrenal adenoma measuring 13 mm. There is soft tissue present just inferior to the body the pancreas at the level of the proximal supe rior mesenteric artery, just caudal to the splenoportal confluence which could possibly represent nod al or uncinate process pancreatic mass. Right-sided UPJ obstruction is suspected as noted on CT, there is hydronephrosis. Cortical cyst assoc iated with the left kidney. The heart is enlarged. Degenerative disc changes are present in the visua lized spine, there is a scoliosis. Small amount of ascites present adjacent to the liver anteriorly. There is no pleural effusion. 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 Indeterminate pancreatic masses some of which likely represent hemangiomas. Additi onal findings above.
== END | disposition home or self-care (01) ==
LOC: RADMRIMAIN 06:01
DX: K83.8 Other specified diseases of biliary tract (principal); K86.89 Other specified diseases of pancreas; Z90.49 Acquired absence of other specified parts of digestive tract; K76.89 Other specified diseases of liver; E27.9 Disorder of adrenal gland, unspecified; R18.8 Other ascites; G25.0 Essential tremor; Z88.0 Allergy status to penicillin; Z91.041 Radiographic dye allergy status; Z88.1 Allergy status to other antibiotic agents; Z88.8 Allergy status to other drugs, medicaments and biological substances; Z91.048 Other nonmedicinal substance allergy status
CPT/HCPCS: 74181

== ENCOUNTER 2017-09-07 07:58 | Day surgery (SDC) | payer MEDICARE, BC ==
[2017-09-07] MEDS ORDERED: HYDROmorphone 0.5 MG/0.5 ML SYRINGE IVP PRN (08:25)
[2017-09-07] MEDS ORDERED: ALPRAZolam 0.25 MG TAB PO ONE (08:25)
[2017-09-07 08:36] VITALS: BP 120/58; PULSE 45; RESP 20; TEMP 97.6
[2017-09-07 08:40] LABS: Platelet Count 170 k/uL (150-450)
[2017-09-07 09:01] LABS: Partial Thromboplastin Time 22.8 sec (22.0-30.0); Prothrombin Time 9.6 sec (9.0-12.0)
--- NOTE | 2017-09-07 09:28 | P.PN ---
Progress Note - Text Progress Note Date: 09/07/17 MRCP report reviewed by Dr. Garay; possible pancreatic mass possible ampullary mass; liver lesion redemonstrated; mixed lesion within the dome as well a double duct sign. Liver biopsy cancelled today secondary to low heart rate in the 40's; patient was asymptomatic. Interventional radiologist recommends to reschedule liver biopsy next week and to follow up w/PCP to evaluate home beta nahum use. Advise to hold beta nahum prior to liver biopsy per PCP recommendations. Results of MRI were discussed with family and patient. Outpatient EUS was advised for further evaluation of MRCP findings.. Dr. Garay's office has initiated referral to [facility]. [facility] will contact patient within 5 business days with additional information and appointment time. All questions were answered to their satisfaction.
== END 2017-09-07 09:40 | disposition home or self-care (01) ==
LOC: RADPROMAIN 07:58
PROVIDERS: ATTEND Internal Medicine Gastroenterology
DX: K76.89 Other specified diseases of liver (principal); R00.1 Bradycardia, unspecified; Z53.8 Procedure and treatment not carried out for other reasons
CPT/HCPCS: 36415; 85049; 85610; 85730